=== PATIENT | female | born 1965 | race Two or more races ===

== ENCOUNTER 2019-01-09 08:36 | Day surgery (SDC) | payer OTHER, BC ==
[~2019-01-09 08:36] MED LIST: BRIMONIDINE TARTRATE 0.2% OPTH SOL OP PRN; BSS WITH EPINEPHRINE OP ONE; DEX-MOXI-KETOR OPTH INJ 1/0.5/0.4 MG/ML IO ONE; LIDOCAINE 1% 20 ML MDV ID STA; LIDOCAINE 1%/PHENYLEPHRINE 1.5% BSS (SURGERY) INTRAOCULA ONE; ZOFRAN 4 MG/2 ML IVP ONE
[2019-01-09] MEDS: BETADINE OPTH PREP OP PRN ×2 (09:15→09:50)
[2019-01-09] MEDS: TETRACAINE 0.5% UNIT-DOSE OP PRN ×2 (09:15→09:50)
[2019-01-09] MEDS: CYCLOGYL 2% OPTH OP PRN ×3 (09:15→09:25)
[2019-01-09] MEDS ORDERED: VERSED ONE (09:52)
[2019-01-09] MEDS ORDERED: SUBLIMAZE ONE (09:52)
[2019-01-09] MEDS ORDERED: MIOSTAT INTRAOCULA ONE ×2 (10:17)
[2019-01-09 14:04] VITALS: TEMP 97
--- NOTE | 2019-01-10 13:20 | OP ---
PREOPERATIVE DIAGNOSIS: MECHANICAL COMPLICATION OF THE IOL OS POSTOPERATIVE DIAGNOSIS: Same DATE OF PROCEDURE: 01/09/19 PROCEDURE PERFORMED: INTRAOCULAR LENS EXCHANGE WITH POSTERIOR CHAMBER LENS IMPLANT LEFT EYE SURGEON: DR. IJEOMA SCHERER ANESTHESIA: LOCAL MAC ANESTHESIOLOGIST: SAMEER DELGADO CIRCULATING NURSE: ELENA MIKE SCRUB NURSE: HATTIE ROMERO COMPLICATIONS: NONE TECHNIQUE: The patient was taken to the operating room where she was placed in a supine position. The left eye was prepped in a routine sterile fashion. A lid speculum was placed in the left eye. Topical Tetracaine drops were applied to the left eye. The anterior chamber was entered with a 2.2 keratome blade. 1% unpreserved Lidocaine with Epinephrine was injected into the anterior chamber followed by viscoelastic material. A secondary side-port corneal incision was made using a stab blade. Viscoelastic material was injected around the intraocular lens and a Sinskey hook was used to separate the lens from the peripheral lens capsule. The posterior capsule was already opened preoperatively. The intraocular lens was rotated slightly within the fibrous capsule. The haptics were densely fibrosed into the peripheral capsule. Bimanual lens cutters were used to bisect the intraocular lens and to truncate the haptics. The two halves of the lens were explanted through the temporal corneal incision with forceps. The two haptics were left fibrosed within the peripheral capsule. A bimanual anterior vitrectomy was performed to remove the small amount of vitreus that did present through the posterior capsule. The temporal corneal incision was slightly enlarged using the keratome blade and a 23.0 MA60AC lens was injected into the ciliary sulcus. Haptics were left in the sulcus. The lens optic was buttonholed through the fibrosed peripheral capsule. Irrigation and aspiration was used to remove viscoelastic material from the eye. Miostat was injected into the anterior chamber. The pupil came down nicely and was round. The corneal incisions were checked and found to be free of vitreous. The temporal corneal incision was hydrated with BSS. The incisions were checked again and found to be watertight and free of vitreous. 0.4 mLs of antibiotic steroid compounded solution was injected into the anterior chamber through the paracentesis incision. Antibiotic and antiinflammatory drops were applied to the operative eye. ReSure sealant was applied to the temporal corneal incision and allowed to dry for 15 seconds. The patient tolerated the procedure well and was discharged to the recovery area in good condition. [facility]
[2019-01-10 17:05] VITALS: BP 132/77
== END 2019-01-09 11:05 | disposition home or self-care (01) ==
LOC: SURG 08:36
PROVIDERS: ATTEND Ophthalmology
DX: T85.29XS Other mechanical complication of intraocular lens, sequela (principal)